=== PATIENT | female | born 1945 | race African-American/Black ===

== ENCOUNTER 2021-10-07 10:50 | Outpatient (CLI) | payer MEDICARE | END 2021-10-07 10:51 | disposition home or self-care (01) | LOC: CSHMAMMO 10:50 | PROVIDERS: ATTEND Family Medicine | DX: Z13.820 Encounter for screening for osteoporosis (principal); N95.9 Unspecified menopausal and perimenopausal disorder; M85.89 Other specified disorders of bone density and structure, multiple sites | CPT/HCPCS: 77080 ==